=== PATIENT | male | born 1945 | race Two or more races ===

== ENCOUNTER 2021-05-16 10:44 | Outpatient (CLI) | payer MEDICARE, MEDICAID | END 2021-05-16 23:59 | disposition home or self-care (01) | LOC: MSC 10:44 | PROVIDERS: ATTEND Internal Medicine | DX: I12.9 Hypertensive chronic kidney disease with stage 1 through stage 4 chronic kidney disease, or unspecified chronic kidney disease (principal); E11.22 Type 2 diabetes mellitus with diabetic chronic kidney disease; N18.32 Chronic kidney disease, stage 3b; Z79.4 Long term (current) use of insulin; E83.9 Disorder of mineral metabolism, unspecified; M89.9 Disorder of bone, unspecified; R60.0 Localized edema; E78.5 Hyperlipidemia, unspecified; Z79.899 Other long term (current) drug therapy ==

== ENCOUNTER 2021-08-15 10:24 | Outpatient (CLI) | payer MEDICARE, OTHER | END 2021-08-15 23:59 | disposition home or self-care (01) | LOC: MSC 10:24 | PROVIDERS: ATTEND Internal Medicine | DX: E11.22 Type 2 diabetes mellitus with diabetic chronic kidney disease (principal); I12.9 Hypertensive chronic kidney disease with stage 1 through stage 4 chronic kidney disease, or unspecified chronic kidney disease; N18.9 Chronic kidney disease, unspecified; Z79.4 Long term (current) use of insulin; E83.9 Disorder of mineral metabolism, unspecified; M89.9 Disorder of bone, unspecified; R60.0 Localized edema; E78.5 Hyperlipidemia, unspecified; Z79.899 Other long term (current) drug therapy ==